=== PATIENT | female | born 1985 | race Caucasian/White ===

== ENCOUNTER → 2023-11-06 09:15 | Outpatient (REF) | payer OTHER, SELFPAY ==
[2023-11-06 12:08] LABS: Rubella Positive
[2023-11-06 12:26] LABS: Hepatitis B Surface Antibody Positive
[2023-11-08 14:36] LABS: Mumps Virus IgG Positive; Rubeola (Measles) IgG Positive; Varicella Zoster IgG (VZV) Positive
== END ==
LOC: OHS 09:15
PROVIDERS: ATTENDING PHYSICIAN Nurse Practitioner Family
DX: Z23 Encounter for immunization (principal); Z13.9 Encounter for screening, unspecified
CPT/HCPCS: 36415; 71046; 86706; 86735; 86762; 86765; 86787